=== PATIENT | male | born 1985 | race Caucasian/White ===

== ENCOUNTER 2020-01-09 23:14 | Emergency (ER) | payer MEDICAID ==
[~2020-01-09] VITALS: Ht 172.7 cm; Wt 84.1 kg
[2020-01-09 23:50] VITALS: BP 130/80
[2020-01-10] MEDS ORDERED: LIDOCAINE 1% 10 ML VIAL INJ ONE (00:15)
[2020-01-10] MEDS ORDERED: PERTUSS(ACELL),DIPH,TET VAC/PF 0.5 ML VIAL IM ONE (00:15)
== END 2020-01-10 01:44 | disposition home or self-care (01) ==
LOC: EMS 23:20
DX: S61.212A Laceration without foreign body of right middle finger without damage to nail, initial encounter (principal); W26.0XXA Contact with knife, initial encounter; Y93.89 Activity, other specified; Y92.89 Other specified places as the place of occurrence of the external cause; Y99.8 Other external cause status
CPT/HCPCS: 12002; 90471; 90715; 99283; J3490

== ENCOUNTER 2020-01-17 21:36 | Emergency (ER) | payer MEDICAID ==
[~2020-01-17] VITALS: Ht 172.7 cm; Wt 84.1 kg
[2020-01-17 21:38] VITALS: BP 126/78
[2020-01-17] MEDS ORDERED: CEPHALEXIN MONOHYDRATE 500 MG CAPSULE PO ONE (23:15)
[2020-01-17] MEDS ORDERED: BACITRACIN 0.9 GM PACKET OINTMENT TP ONE (23:15)
== END 2020-01-17 23:15 | disposition home or self-care (01) ==
LOC: EMS 21:39
DX: L08.9 Local infection of the skin and subcutaneous tissue, unspecified (principal); Z48.02 Encounter for removal of sutures

== ENCOUNTER 2020-01-20 21:43 | Emergency (ER) | payer MEDICAID ==
[~2020-01-20] VITALS: Ht 172.7 cm; Wt 84.1 kg
[2020-01-20 21:50] VITALS: BP 133/86
== END 2020-01-20 22:03 | disposition left against medical advice (07) ==
LOC: EMS 21:43
DX: Z48.01 Encounter for change or removal of surgical wound dressing (principal); Z53.21 Procedure and treatment not carried out due to patient leaving prior to being seen by health care provider